=== PATIENT | female | born 1975 | race Caucasian/White ===

== ENCOUNTER 2020-12-04 12:14 | Inpatient (IN) ==
[2020-12-04] MEDS ORDERED: Tranexamic Acid 1,000 MG/100ML 1,000 MG/100 ML PIGGYBACK IVPB ONE ×2 (12:17→12:21)
[2020-12-04 12:42] LABS: Basophils % 0.2 %; Eosinophils # 0.2 K/mcL (0.0-0.6); Eosinophils % 1.3 %; Hematocrit 32.2 % (35.3-44.9); Hemoglobin 10.2 g/dL (11.5-15.4); Immature Granulocytes % 0.2 % (0-4); Lymphocytes # 4.8 K/mcL (0.6-4.6); Lymphocytes % 35.4 %; Mean Corpuscular HGB Conc 31.7 g/dL (31.6-35.5); Mean Corpuscular Volume 91.5 fL (83.0-100.0); Mean Platelet Volume 10.2 fL (9.4-12.4); Monocytes # 1.4 K/mcL (0.0-1.3); Monocytes % 10.3 %; Neutrophils # 7.1 K/mcL (1.6-8.9); Platelet Count 333 K/mcL (140-400); Red Blood Count 3.52 M/mcL (3.82-4.97); Red Cell Distribution Width 12.7 % (11.5-14.5); Segmented Neutrophils % 52.6 %; White Blood Count 13.5 K/mcL (4.3-11.1)
[2020-12-04 12:54] LABS: Prothrombin Time 10.8 Seconds (9.4-12.1)
[2020-12-04 12:57] LABS: Activated Partial Thrombo Time 27.1 Seconds (26.0-36.0)
[2020-12-04] MEDS ORDERED: *HR* HYDROmorphone 2 MG/ML SYRINGE IVP ONE ×2 (13:03→16:37)
[2020-12-04 13:18] LABS: Alanine Aminotransferase 11 Units/L (7-52); Albumin 4.2 g/dL (3.5-5.7); Albumin/Globulin Ratio 2.1 (1.1-2.2); Alkaline Phosphatase 57 Units/L (34-104); Aspartate Amino Transferase 14 Units/L (13-39); BUN/Creatinine Ratio 10 (6-26); Bilirubin,Total 0.3 mg/dL (0.3-1.0); Blood Urea Nitrogen 10 mg/dL (6-20); Calcium 9.1 mg/dL (8.6-10.3); Carbon Dioxide 25 mEq/L (23-29); Chloride 108 mEq/L (98-107); Glucose 95 mg/dL (70-105); Osmolality,Calculated 289 (280-300); Potassium 3.3 mEq/L (3.5-5.1); Sodium 140 mEq/L (136-145); Total Protein 6.2 g/dL (6.4-8.9); eGFR For African Americans > 60 (> 60); eGFR For Non-African Americans > 60 (> 60)
[2020-12-04] MEDS: Ringers Solution, Lactated 1,000 ML IVC SCH ×2 (14:07→21:55)
[2020-12-04] MEDS: *HR* OxyCODONE/APAP 5/325 TABLET PO PRN (14:13)
[2020-12-04] MEDS ORDERED: Isovue-370 500 ML BOTTLE IVP ONE (14:13)
[2020-12-04] MEDS ORDERED: *HR* HYDROmorphone (PF) 1 MG/ML SYRINGE IVP ONE (14:14)
[2020-12-04] MEDS: Ondansetron 4 MG/2 ML VIAL IVP PRN (15:53)
[2020-12-04] MEDS ORDERED: 0.9 % Sodium Chloride 1,000 ML ONE ×2 (16:13→20:26)
[2020-12-04 18:00] LABS: Alanine Aminotransferase 30 Units/L (7-52); Albumin 3.7 g/dL (3.5-5.7); Albumin/Globulin Ratio 2.1 (1.1-2.2); Alkaline Phosphatase 52 Units/L (34-104); Aspartate Amino Transferase 47 Units/L (13-39); BUN/Creatinine Ratio 12 (6-26); Bilirubin,Total 0.4 mg/dL (0.3-1.0); Blood Urea Nitrogen 10 mg/dL (6-20); Calcium 8.2 mg/dL (8.6-10.3); Carbon Dioxide 25 mEq/L (23-29); Chloride 108 mEq/L (98-107); Globulin 1.8 g/dL (2.4-3.5); Glucose 132 mg/dL (70-105); Osmolality,Calculated 287 (280-300); Sodium 138 mEq/L (136-145); Total Protein 5.5 g/dL (6.4-8.9); eGFR For African Americans > 60 (> 60); eGFR For Non-African Americans > 60 (> 60)
[2020-12-04 18:03] LABS: Basophils % 0.3 %; Eosinophils % 0.1 %; Hematocrit 27.2 % (35.3-44.9); Hemoglobin 8.9 g/dL (11.5-15.4); Immature Granulocytes % 0.5 % (0-4); Lymphocytes # 1.6 K/mcL (0.6-4.6); Lymphocytes % 10.1 %; Mean Corpuscular HGB Conc 32.7 g/dL (31.6-35.5); Mean Corpuscular Hemoglobin 29.8 pg (28.0-33.3); Mean Platelet Volume 11.1 fL (9.4-12.4); Monocytes # 1.5 K/mcL (0.0-1.3); Monocytes % 9.5 %; Neutrophils # 12.5 K/mcL (1.6-8.9); Platelet Count 227 K/mcL (140-400); Red Blood Count 2.99 M/mcL (3.82-4.97); Red Cell Distribution Width 12.9 % (11.5-14.5); Segmented Neutrophils % 79.5 %; White Blood Count 15.7 K/mcL (4.3-11.1)
[2020-12-04] MEDS ORDERED: Heparin 1,000 UNITS/500 mL 500 ML ONE (18:47)
[2020-12-04] MEDS ORDERED: 0.9 % Sodium Chloride 500 ML ONE ×2 (18:47→19:07)
[2020-12-04] MEDS ORDERED: *HR* FentaNYL (PF) 100 MCG/2 ML VIAL ONE (19:14)
[2020-12-04] MEDS ORDERED: *HR* Midazolam HCl 2 MG/2 ML VIAL ONE (19:14)
[2020-12-04] MEDS ORDERED: *HR* FentaNYL (PF) 100 MCG/2 ML VIAL IVP ONE (19:23)
[2020-12-04] MEDS ORDERED: *HR* Midazolam HCl 2 MG/2 ML VIAL IVP ONE (19:25)
[2020-12-04] MEDS ORDERED: Isovue-300 50ML VIAL IVP ONE (20:59)
[2020-12-04] MEDS ORDERED: Ringers Solution, Lactated 500 ML IVC ONE (21:35)
[2020-12-04] MEDS: *HR* HYDROmorphone 2 MG/ML SYRINGE IVP PRN (21:57)
[2020-12-05 00:01] LABS: Basophils % 0.2 %; Eosinophils % 0.3 %; Hematocrit 24.9 % (35.3-44.9); Hemoglobin 8.2 g/dL (11.5-15.4); Immature Granulocytes % 0.5 % (0-4); Lymphocytes # 2.6 K/mcL (0.6-4.6); Lymphocytes % 26.6 %; Mean Corpuscular HGB Conc 32.9 g/dL (31.6-35.5); Mean Corpuscular Hemoglobin 29.3 pg (28.0-33.3); Mean Corpuscular Volume 88.9 fL (83.0-100.0); Mean Platelet Volume 10.6 fL (9.4-12.4); Monocytes # 0.9 K/mcL (0.0-1.3); Monocytes % 9.5 %; Neutrophils # 6.2 K/mcL (1.6-8.9); Platelet Count 215 K/mcL (140-400); Red Cell Distribution Width 15.4 % (11.5-14.5); Segmented Neutrophils % 62.9 %; White Blood Count 9.8 K/mcL (4.3-11.1)
[2020-12-05 00:12] LABS: Potassium 4.1 mEq/L (3.5-5.1)
[2020-12-05] MEDS: *HR* HYDROmorphone 2 MG/ML SYRINGE IVP PRN ×5 (02:32→20:26)
[2020-12-05] MEDS: Ondansetron 4 MG/2 ML VIAL IVP PRN (06:04)
[2020-12-05] MEDS: Ringers Solution, Lactated 1,000 ML IVC SCH ×2 (06:07→13:44)
[2020-12-05 09:48] LABS: Hematocrit 25.6 % (35.3-44.9); Hemoglobin 8.2 g/dL (11.5-15.4)
[2020-12-05] MEDS: hydrOXYzine pamoate 25 MG CAPSULE PO PRN ×2 (09:49→20:28)
[2020-12-05 09:56] LABS: INR 1.1; Prothrombin Time 12.1 Seconds (9.4-12.1)
[2020-12-05 09:59] LABS: Activated Partial Thrombo Time 28.4 Seconds (26.0-36.0)
[2020-12-05] MEDS: *HR* OxyCODONE/APAP 5/325 TABLET PO PRN (13:43)
[2020-12-05 15:52] LABS: BUN/Creatinine Ratio 9 (6-26); Blood Urea Nitrogen 8 mg/dL (6-20); eGFR For African Americans > 60 (> 60); eGFR For Non-African Americans > 60 (> 60)
[2020-12-05] MEDS ORDERED: Vancomycin 1,500 MG/265 ML IV.SOLN IVPB ONE (17:15)
[2020-12-05] MEDS ORDERED: *HR* Belladonna Alkaloids/Opium 30 MG RECTAL SUPPOSITORY RC PRN (17:57)
[2020-12-05] MEDS ORDERED: Acetaminophen IV 1,000 MG/100 ML BAG IVPB SCH (18:00)
[2020-12-05] MEDS: Piperacillin/Tazobactam 3.375 GM in 0.9 % Sodium Chloride Mini Bag 100 ML IVPB SCH (18:01)
[2020-12-05 19:00] LABS: Basophils % 0.3 %; Eosinophils # 0.4 K/mcL (0.0-0.6); Eosinophils % 3.9 %; Hematocrit 23.7 % (35.3-44.9); Hemoglobin 7.5 g/dL (11.5-15.4); Immature Granulocytes % 0.2 % (0-4); Lymphocytes # 2.5 K/mcL (0.6-4.6); Lymphocytes % 27.1 %; Mean Corpuscular HGB Conc 31.6 g/dL (31.6-35.5); Mean Corpuscular Hemoglobin 28.7 pg (28.0-33.3); Mean Corpuscular Volume 90.8 fL (83.0-100.0); Mean Platelet Volume 10.1 fL (9.4-12.4); Monocytes # 0.9 K/mcL (0.0-1.3); Monocytes % 9.6 %; Neutrophils # 5.5 K/mcL (1.6-8.9); Platelet Count 234 K/mcL (140-400); Red Blood Count 2.61 M/mcL (3.82-4.97); Red Cell Distribution Width 15.4 % (11.5-14.5); Segmented Neutrophils % 58.9 %; White Blood Count 9.4 K/mcL (4.3-11.1)
[2020-12-05] MEDS ORDERED: 0.9 % Sodium Chloride 250 ML ONE (22:43)
[2020-12-06] MEDS: *HR* OxyCODONE/APAP 5/325 TABLET PO PRN ×6 (00:18→21:17)
[2020-12-06] MEDS: Piperacillin/Tazobactam 3.375 GM in 0.9 % Sodium Chloride Mini Bag 100 ML IVPB SCH ×3 (02:16→17:09)
[2020-12-06] MEDS: Acetaminophen 325 MG TABLET PO PRN ×3 (03:46→17:59)
[2020-12-06] MEDS: Ipratropium/Albuterol Neb 3 ML IH PRN ×2 (04:15→21:10)
[2020-12-06] MEDS: Ringers Solution, Lactated 1,000 ML IVC SCH (04:32)
[2020-12-06 05:15] LABS: Basophils % 0.4 %; Eosinophils # 0.4 K/mcL (0.0-0.6); Eosinophils % 3.7 %; Hematocrit 25.6 % (35.3-44.9); Hemoglobin 8.4 g/dL (11.5-15.4); Immature Granulocytes % 0.3 % (0-4); Lymphocytes # 1.8 K/mcL (0.6-4.6); Mean Corpuscular HGB Conc 32.8 g/dL (31.6-35.5); Mean Corpuscular Hemoglobin 29.3 pg (28.0-33.3); Mean Corpuscular Volume 89.2 fL (83.0-100.0); Mean Platelet Volume 10.1 fL (9.4-12.4); Monocytes % 9.5 %; Neutrophils # 7.2 K/mcL (1.6-8.9); Platelet Count 212 K/mcL (140-400); Red Blood Count 2.87 M/mcL (3.82-4.97); Red Cell Distribution Width 14.5 % (11.5-14.5); Segmented Neutrophils % 69.1 %; White Blood Count 10.4 K/mcL (4.3-11.1)
[2020-12-06] MEDS: *HR* HYDROmorphone 2 MG/ML SYRINGE IVP PRN ×3 (06:28→19:36)
[2020-12-06] MEDS: Vancomycin 1,250 MG/262.5 ML IV.SOLN IVPB SCH ×2 (06:41→18:00)
[2020-12-06] MEDS ORDERED: Vancomycin 1,000 MG VIAL ONE (07:37)
[2020-12-06] MEDS ORDERED: Protamine Sulfate 50 MG/5 ML VIAL IVP ONE (07:37)
[2020-12-06] MEDS ORDERED: Heparin 1,000 UNITS/500 mL 1,500 ML ONE (07:37)
[2020-12-06] MEDS ORDERED: Bupivacaine-MPF 0.25% 10 ML VIAL ONE (07:37)
[2020-12-06 08:03] LABS: BUN/Creatinine Ratio 7 (6-26); Blood Urea Nitrogen 6 mg/dL (6-20); Calcium 8.2 mg/dL (8.6-10.3); Carbon Dioxide 27 mEq/L (23-29); Chloride 107 mEq/L (98-107); Glucose 121 mg/dL (70-105); Osmolality,Calculated 285 (280-300); Potassium 3.9 mEq/L (3.5-5.1); Sodium 138 mEq/L (136-145); eGFR For African Americans > 60 (> 60); eGFR For Non-African Americans > 60 (> 60)
[2020-12-06] MEDS: Budesonide/Formoterol 80/4.5 1 PUFF INH IH SCH ×2 (10:15→21:10)
[2020-12-06] MEDS: methocarbamoL 500 MG TABLET PO SCH ×2 (10:15→17:59)
[2020-12-06] MEDS ORDERED: Isovue-370 500 ML BOTTLE IVP ONE (13:04)
[2020-12-06] MEDS ORDERED: Isovue-370 500 ML BOTTLE PO ONE (13:04)
[2020-12-06] MEDS: polyethylene glycoL 3350 17 GM POWD.PACK PO PRN ×2 (13:52→19:54)
[2020-12-06] MEDS: hydrOXYzine pamoate 25 MG CAPSULE PO PRN ×2 (13:55→21:18)
[2020-12-06] MEDS ORDERED: MetroNIDAZOLE 500 MG/100 ML 500 MG/100 ML BAG IVPB SCH (16:37)
[2020-12-06] MEDS: Metoclopramide 10 MG/2 ML VIAL IVP SCH (21:18)
[2020-12-07] MEDS: Acetaminophen 325 MG TABLET PO PRN ×4 (00:11→19:43)
[2020-12-07] MEDS: methocarbamoL 500 MG TABLET PO SCH ×3 (00:11→16:48)
[2020-12-07] MEDS: Piperacillin/Tazobactam 3.375 GM in 0.9 % Sodium Chloride Mini Bag 100 ML IVPB SCH ×4 (00:13→18:19)
[2020-12-07] MEDS: *HR* OxyCODONE/APAP 5/325 TABLET PO PRN ×4 (04:28→21:40)
[2020-12-07] MEDS: Metoclopramide 10 MG/2 ML VIAL IVP SCH ×3 (04:29→18:20)
[2020-12-07] MEDS: Ringers Solution, Lactated 1,000 ML IVC SCH (06:11)
[2020-12-07] MEDS: Vancomycin 1,250 MG/262.5 ML IV.SOLN IVPB SCH (06:11)
[2020-12-07] MEDS: Budesonide/Formoterol 80/4.5 1 PUFF INH IH SCH ×2 (07:50→21:41)
[2020-12-07] MEDS: polyethylene glycoL 3350 17 GM POWD.PACK PO PRN (08:54)
[2020-12-07] MEDS: Ondansetron 4 MG/2 ML VIAL IVP PRN (09:33)
[2020-12-07 13:21] LABS: Alanine Aminotransferase 24 Units/L (7-52); Albumin 3.8 g/dL (3.5-5.7); Albumin/Globulin Ratio 1.7 (1.1-2.2); Alkaline Phosphatase 53 Units/L (34-104); Aspartate Amino Transferase 17 Units/L (13-39); BUN/Creatinine Ratio 8 (6-26); Bilirubin,Total 0.5 mg/dL (0.3-1.0); Blood Urea Nitrogen 6 mg/dL (6-20); Calcium 8.6 mg/dL (8.6-10.3); Carbon Dioxide 24 mEq/L (23-29); Chloride 108 mEq/L (98-107); Globulin 2.3 g/dL (2.4-3.5); Glucose 116 mg/dL (70-105); Osmolality,Calculated 289 (280-300); Potassium 3.9 mEq/L (3.5-5.1); Sodium 140 mEq/L (136-145); Total Protein 6.1 g/dL (6.4-8.9); eGFR For African Americans > 60 (> 60); eGFR For Non-African Americans > 60 (> 60)
[2020-12-07 13:23] LABS: Basophils % 0.4 %; Eosinophils # 0.4 K/mcL (0.0-0.6); Eosinophils % 4.3 %; Hematocrit 26.4 % (35.3-44.9); Hemoglobin 8.3 g/dL (11.5-15.4); Immature Granulocytes % 0.2 % (0-4); Lymphocytes # 1.6 K/mcL (0.6-4.6); Lymphocytes % 17.4 %; Mean Corpuscular HGB Conc 31.4 g/dL (31.6-35.5); Mean Corpuscular Hemoglobin 29.3 pg (28.0-33.3); Mean Corpuscular Volume 93.3 fL (83.0-100.0); Mean Platelet Volume 10.7 fL (9.4-12.4); Monocytes # 0.6 K/mcL (0.0-1.3); Monocytes % 6.6 %; Neutrophils # 6.4 K/mcL (1.6-8.9); Platelet Count 224 K/mcL (140-400); Red Blood Count 2.83 M/mcL (3.82-4.97); Red Cell Distribution Width 14.6 % (11.5-14.5); Segmented Neutrophils % 71.1 %
[2020-12-07] MEDS: Vancomycin 1,500 MG/265 ML IV.SOLN IVPB SCH (17:46)
[2020-12-08] MEDS: Metoclopramide 10 MG/2 ML VIAL IVP SCH ×4 (00:01→16:53)
[2020-12-08] MEDS: methocarbamoL 500 MG TABLET PO SCH ×3 (00:01→16:53)
[2020-12-08] MEDS: Piperacillin/Tazobactam 3.375 GM in 0.9 % Sodium Chloride Mini Bag 100 ML IVPB SCH ×3 (02:14→16:53)
[2020-12-08] MEDS: Acetaminophen 325 MG TABLET PO PRN ×3 (02:15→17:45)
[2020-12-08] MEDS: *HR* OxyCODONE/APAP 5/325 TABLET PO PRN ×4 (05:41→21:02)
[2020-12-08] MEDS: Ondansetron 4 MG/2 ML VIAL IVP PRN (05:41)
[2020-12-08] MEDS: Vancomycin 1,500 MG/265 ML IV.SOLN IVPB SCH ×2 (06:29→21:04)
[2020-12-08] MEDS: hydrOXYzine pamoate 25 MG CAPSULE PO PRN ×2 (08:30→21:04)
[2020-12-08] MEDS: polyethylene glycoL 3350 17 GM POWD.PACK PO PRN ×2 (08:30→16:53)
[2020-12-08] MEDS: Budesonide/Formoterol 80/4.5 1 PUFF INH IH SCH ×2 (19:00→22:27)
[2020-12-08] MEDS: Ringers Solution, Lactated 1,000 ML IVC SCH (21:01)
[2020-12-08] MEDS: Ipratropium/Albuterol Neb 3 ML IH PRN (22:50)
[2020-12-09] MEDS: Piperacillin/Tazobactam 3.375 GM in 0.9 % Sodium Chloride Mini Bag 100 ML IVPB SCH ×2 (00:15→09:06)
[2020-12-09] MEDS: Acetaminophen 325 MG TABLET PO PRN ×2 (00:15→06:06)
[2020-12-09] MEDS: methocarbamoL 500 MG TABLET PO SCH ×2 (00:15→09:05)
[2020-12-09] MEDS: Metoclopramide 10 MG/2 ML VIAL IVP SCH ×2 (00:16→06:07)
[2020-12-09] MEDS: Vancomycin 1,500 MG/265 ML IV.SOLN IVPB SCH (06:07)
[2020-12-09] MEDS: polyethylene glycoL 3350 17 GM POWD.PACK PO PRN (09:05)
[2020-12-09] MEDS: *HR* OxyCODONE/APAP 5/325 TABLET PO PRN (09:05)
[2020-12-09 09:22] VITALS: BP 110/67; PULSE 87; TEMP 97.8; O2SAT 98
== END 2020-12-09 10:32 | disposition home or self-care (01) | DRG 919 ==
LOC: 1NENUOBS 12:14 → EMEROOARM 12:14 → 1NENUOBS 14:49
PROVIDERS: ADMIT Obstetrics & Gynecology; ATTEND Obstetrics & Gynecology